=== PATIENT | female | born 1980 | race Caucasian/White ===

== ENCOUNTER 2022-12-19 12:45 | Outpatient (RCR) | payer OTHER | END 2023-01-01 14:26 | disposition home or self-care (01) | LOC: WSOH 12:45 | DX: S93.402D Sprain of unspecified ligament of left ankle, subsequent encounter (principal); F41.8 Other specified anxiety disorders; M19.90 Unspecified osteoarthritis, unspecified site; Y99.0 Civilian activity done for income or pay ==

== ENCOUNTER → 2023-06-11 | Outpatient (RCR) | payer OTHER | END | disposition home or self-care (01) | LOC: WSPT | DX: M51.36 Other intervertebral disc degeneration, lumbar region (principal); R42 Dizziness and giddiness; I50.9 Heart failure, unspecified ==

== ENCOUNTER 2023-07-08 15:45 | Outpatient (RCR) | payer OTHER | END 2023-07-11 | disposition home or self-care (01) | LOC: WSPT | DX: M51.36 Other intervertebral disc degeneration, lumbar region (principal); R42 Dizziness and giddiness; I50.9 Heart failure, unspecified; F19.11 Other psychoactive substance abuse, in remission ==